=== PATIENT | female | born 1990 | race American Indian/Alaskan Native ===

== ENCOUNTER 2017-05-24 16:03 | Emergency (ER) | payer SELFPAY ==
[2017-05-24] MEDS ORDERED: TORADOL IM ONE (18:43)
--- NOTE | 2017-05-24 18:53 | Emergency Department Report ---
ED Lower Extremity HPI - General Chief Complaint: Extremity Injury, Lower Stated Complaint: BILAT LEG PAIN R MORE THEN L Time Seen by Provider: 05/24/17 18:31 Source: patient Mode of arrival: Ambulatory Limitations: No Limitations - History of Present Illness Initial Comments: Patient is a 26-year-old female here with right leg pain. Patient states that she has a known DVT approximate 4 years ago. She is not currently on any anticoagulants. She states that 4 days ago her legs started to hurt and has subsequently achieved to hurt since that time. She describes it as sharp pain that radiates all the way down her leg. She has no back pain. She is also now beginning to have some left leg pain and tingling as well. No fevers chills nausea vomiting. MD Complaint: other (bilateral leg pain) -: days(s) (4) Severity: moderate Improves With: nothing Worsens With: movement Associated Symptoms: swelling, numbness, tingling. denies: unable to bear weight, ambulatory - Related Data Previous Rx's Medication Instructions Recorded Last Taken Type Cyclobenzaprine [Flexeril] 10 mg PO TID PRN #15 tablet 08/21/16 Unknown Rx Capsaicin 42.5 gm TP BID #1 cream..g. 05/24/17 Unknown Rx Naproxen [Naprosyn TAB] 375 mg PO BID #30 tablet 05/24/17 Unknown Rx Allergies Allergy/AdvReac Type Severity Reaction Status Date / Time hydrocodone AdvReac Hives Verified 05/24/17 16:16 ED Review of Systems ROS: Stated complaint: BILAT LEG PAIN R MORE THEN L Other details as noted in HPI Comment: All other systems reviewed and negative Constitutional: denies: chills, fever Eyes: denies: eye pain, eye discharge, vision change ENT: denies: ear pain, throat pain Respiratory: denies: cough, shortness of breath, wheezing Cardiovascular: denies: chest pain, palpitations Endocrine: no symptoms reported Gastrointestinal: denies: abdominal pain, nausea, diarrhea Genitourinary: denies: urgency, dysuria, discharge Musculoskeletal: denies: back pain, joint swelling, arthralgia Skin: denies: rash, lesions Neurological: denies: headache, weakness, paresthesias Psychiatric: denies: anxiety, depression Hematological/Lymphatic: denies: easy bleeding, easy bruising ED Past Medical Hx - Past Medical History Hx Deep Vein Thrombosis: Yes - Surgical History Past Surgical History?: No - Family History Family history: no significant - Social History Smoking Status: Current Every Day Smoker Substance Use Type: Marijuana - Medications Home Medications: Home Medications Medication Instructions Recorded Confirmed Last Taken Type Cyclobenzaprine [Flexeril] 10 mg PO TID PRN #15 tablet 08/21/16 Unknown Rx Capsaicin 42.5 gm TP BID #1 cream..g. 05/24/17 Unknown Rx Naproxen [Naprosyn TAB] 375 mg PO BID #30 tablet 05/24/17 Unknown Rx ED Physical Exam - General Limitations: No Limitations General appearance: alert, in no apparent distress - Head Head exam: Present: atraumatic, normocephalic - Eye Eye exam: Present: normal appearance. Absent: scleral icterus, conjunctival injection - ENT ENT exam: Present: mucous membranes moist - Neck Neck exam: Present: normal inspection. Absent: lymphadenopathy - Respiratory Respiratory exam: Present: normal lung sounds bilaterally. Absent: respiratory distress - Cardiovascular Cardiovascular Exam: Present: regular rate, normal rhythm. Absent: systolic murmur, diastolic murmur, rubs, gallop - GI/Abdominal GI/Abdominal exam: Present: soft, normal bowel sounds - Extremities Exam Extremities exam: Present: normal inspection, tenderness, other (she has pain with straight leg raise on both sides.). Absent: full ROM, pedal edema - Back Exam Back exam: Present: normal inspection, full ROM. Absent: tenderness, muscle spasm, paraspinal tenderness, vertebral tenderness - Neurological Exam Neurological exam: Present: alert, oriented X3 - Psychiatric Psychiatric exam: Present: normal affect, normal mood - Skin Skin exam: Present: warm, dry, intact, normal color. Absent: rash ED Course Vital Signs 05/24/17 05/24/17 16:16 17:34 Temperature 98.7 F 98.8 F Pulse Rate 69 58 L Respiratory 16 20 Rate Blood Pressure 118/49 Blood Pressure 119/65 [Right] O2 Sat by Pulse 100 100 Oximetry ED Lower Extremity MDM - Lab Data Result diagrams: 05/24/17 19:05 - Medical Decision Making 26 female with known history of DVT here with complaint of right leg pain similar to prior DVT. Ultrasound of bilateral legs is negative. Plan check labs to make sure she does not have any electrolyte abnormalities could cause her pain. Discussed need to have the patient repeat her ultrasound in 3-5 days given her history. Patient is comfortable with this plan. The meantime plan to place the patient on NSAIDs for the next 72-120 hours. Portions of this chart were dictated with dictation software. There may be dictation errors contained within this note. Critical care attestation.: If time is entered above; I have spent that time in minutes in the direct care of this critically ill patient, excluding procedure time. ED Disposition Clinical Impression: Leg pain Disposition: TO HOME OR SELFCARE Is pt being admited?: No Condition: Stable Additional Instructions: Please follow up for repeat ultrasound in 3-5 days Prescriptions: Capsaicin 42.5 gm TP BID #1 cream..g. Naproxen [Naprosyn TAB] 375 mg PO BID #30 tablet Referrals: PRIMARY CARE, [Primary Care Provider] - 3-5 Days
[2017-05-24 19:24] LABS: Basophils % (Auto) 0.5 % (0.0-1.8); Hematocrit 37.3 % (30.3-42.9); Hemoglobin 12.4 gm/dl (10.1-14.3); Mean Corpuscular HGB Conc 33 % (30-34); Mean Corpuscular Hemoglobin 32 pg (28-32); Mean Corpuscular Volume 97 fl (79-97); Platelet Count 305 K/mm3 (140-440); Red Blood Count 3.86 M/mm3 (3.65-5.03); Red Cell Distribution Width 13.4 % (13.2-15.2); White Blood Count 9.1 K/mm3 (4.5-11.0)
[2017-05-24 19:37] LABS: Alanine Aminotransferase 7 units/L (7-56); Albumin 4.2 g/dL (3.9-5); Albumin/Globulin Ratio 1.6 %; Alkaline Phosphatase 65 units/L (35-129); Anion Gap 16 mmol/L; BUN/Creatinine Ratio 15.71; Blood Urea Nitrogen 11 mg/dL (7-17); Calcium 9.3 mg/dL (8.4-10.2); Carbon Dioxide 27 mmol/L (22-30); Glucose 94 mg/dL (65-100); Potassium 4.4 mmol/L (3.6-5.0); Sodium 141 mmol/L (137-145); Total Protein 6.9 g/dL (6.3-8.2)
[2017-05-24 19:45] VITALS: BP 120/60
--- NOTE | 2017-05-25 11:41 | Vascular Lab Report ---
LOWER EXTREMITY VENOUS DUPLEX: REASON FOR EXAM: Pain of the lower extremities. COMMENTS ON THE RIGHT: All veins visualized are freely compressible without evidence of internal echogenicity. Flow is spontaneous and phasic throughout. COMMENTS ON THE LEFT: All veins visualized are freely compressible without evidence of internal echogenicity. Flow is spontaneous and phasic throughout. IMPRESSION: No evidence of acute or chronic deep venous thrombosis in either lower extremity.
== END 2017-05-24 20:17 | disposition home or self-care (01) ==
LOC: ED 16:03
DX: M79.604 Pain in right leg (principal); R20.0 Anesthesia of skin; I82.409 Acute embolism and thrombosis of unspecified deep veins of unspecified lower extremity; F12.10 Cannabis abuse, uncomplicated; F17.200 Nicotine dependence, unspecified, uncomplicated; Z88.5 Allergy status to narcotic agent
CPT/HCPCS: 36415; 80053; 85025; 93970; 96372; 99283; J1885

== ENCOUNTER 2017-06-12 05:53 | Emergency (ER) | payer OTHER ==
--- NOTE | 2017-06-12 07:28 | Emergency Department Report ---
Upper Extremity - [facility] Chief Complaint: Extremity Problem,Nontraumatic Stated Complaint: RT SHOULDER PAIN Time Seen by Provider: 06/12/17 07:15 Upper Extremity: Right Shoulder (right shoulder pain) Occurred When: 1 Day Mechanism: Other (lifting heavy objects at work) Symptoms: Yes Pain with Movement (right shoulder), Yes Limited Range of Movement , No Deformity, No Numbness, No Weakness, No Swelling, No Bruising/Ecchymosis, No Laceration or Abrasion Other History: Pt here reports right shoulder pain after lifting heavy object at work yesterday. She said it got worse this morning. Denies any numbness or tingling. Reports some radiation of pain to her right arm. Denies any weakness. Denies any chest pain or shortness of breath. Denies any swelling or blunt injury. No [id number] medication taken. Better rest worse with movement. past medical history of DVT in her leg. Positive smoker. ED Review of Systems ROS: Stated complaint: RT SHOULDER PAIN Other details as noted in HPI Comment: All other systems reviewed and negative Constitutional: no symptoms reported Respiratory: no symptoms reported Cardiovascular: denies: chest pain, palpitations, edema, syncope Gastrointestinal: denies: abdominal pain, nausea, vomiting, diarrhea Genitourinary: denies: urgency, dysuria, frequency, hematuria, discharge Musculoskeletal: arthralgia. denies: back pain, joint swelling, myalgia Skin: denies: rash Neurological: denies: headache, weakness, numbness, paresthesias, confusion, abnormal gait, vertigo ED Past Medical Hx - Past Medical History Previous Medical History?: Yes Hx Deep Vein Thrombosis: Yes - Surgical History Past Surgical History?: No - Family History Family history: hypertension - Social History Smoking Status: Current Every Day Smoker Substance Use Type: Marijuana - Medications Home Medications: Home Medications Medication Instructions Recorded Confirmed Last Taken Type Cyclobenzaprine [Flexeril] 10 mg PO TID PRN #15 tablet 08/21/16 Unknown Rx Capsaicin 42.5 gm TP BID #1 cream..g. 05/24/17 Unknown Rx Naproxen [Naprosyn TAB] 375 mg PO BID #30 tablet 05/24/17 Unknown Rx Naproxen [Naprosyn] 500 mg PO BID PRN #12 tablet 06/12/17 Unknown Rx traMADol [Ultram] 50 mg PO Q6HR PRN #12 tablet 06/12/17 Unknown Rx Upper Extremity Exam - Exam General: Vital signs noted. No distress. Alert and acting appropriately. This is a 26-year-old female well-nourished well-developed in no acute distress. Head and Torso: No HEENT Abnormality (normal exam), No Neck Tenderness (no C- spine tenderness, no neck muscle tenderness, full range of motion and supple), No Chest/Lungs Abnormality (no chest wall tenderness. Clear to auscultation bilaterally, no rhonchi wheezes or rales. Normal work of breathing), No Abdominal Tenderness (non tender to palpate in all quadrants, positive bowel sounds in all quadrants) Shoulder Exam: Yes Shoulder Tenderness (Glenhumoral joint), Yes Normal Range of Motion in Shoulder ( full range of painful to place right upper extremity overhead.), No Clavicle Tenderness, No Shoulder Deformity (no swelling noted.), No AC Joint Tenderness Arm Exam: No Arm/Humerus Tenderness (no swelling, pulses are 2+ and bounding. No erythema noted.), No Arm Deformity Elbow: Yes Normal Range of Motion in Elbow, No Elbow Tenderness, No Elbow Deformity Forearm: No Forearm Tenderness, No Forearm Deformity, No Pain with Pronation, No Pain with Supination Wrist: Yes Normal ROM in Wrist, No Wrist Tenderness, No Wrist Deformity, No Snuffbox Tenderness, No Pain with Axial Thumb Compression Hand: Yes Normal ROM in Digit(s), No Hand Tenderness, No Hand Deformity, No Digit Tenderness, No Digit(s) Deformity, No Tendon Dysfunction CMS Exam: Yes Normal Distal Pulses, Yes Normal Capillary Refill, Yes Normal Distal Sensation, No Broken Skin ED Course Vital Signs 06/12/17 05:58 Temperature 97.9 F Pulse Rate 79 Respiratory 20 Rate Blood Pressure 124/79 O2 Sat by Pulse 98 Oximetry - Reevaluation(s) Reevaluation #1: 06/12/17 09:26 Patient given [place] 5/325 mg 2 tablets in the emergency room which relieved the right shoulder pain. I discussed with her that she needs to rest, elevate ice affected area. ED Medical Decision Making - Radiology Data Radiology results: report reviewed X-ray of right shoulder reveal no acute fracture or dislocation. - Medical Decision Making ED course:Pt reported that she has right shoulder pain that started yesterday after lifting heavy object at work. X-ray findings for no acute fracture or dislocation. Physical findings for pain with raising her right upper extremity above her head and pain with palpation to her right Glenhumoral joint joint. Patient is also complaining the pain is radiating to her right arm. Right arm exam is normal. Although patient has history of DVT in her leg, she does not have any physical findings that would suggest that she has DVT in her right upper arm. She has no swelling in, no erythema and no tenderness. Smoking cessation encouraged. Patient was given [place] 5/325 2 tablets in the emergency room which relieved her pain. She was also given Zofran 4 mg ODT and doses on 60 mg by mouth because she said that she is allergic to hydrocodone but not to Percocet. This was given empirically to prevent any itching or urticaria. She had no adverse side effect from medication. I discussed with her rice protocol and she needs to follow up with orthopedic doctor on Thursday if she continues to have pain. She was understanding the discharge instruction in paperwork and discharge home in stable condition with her family.Discharged home with prescription for naproxen and Ultram. Critical care attestation.: If time is entered above; I have spent that time in minutes in the direct care of this critically ill patient, excluding procedure time. ED Disposition Clinical Impression: Arthralgia of shoulder region, right, Radiculopathy of arm Disposition: DC-01 TO HOME OR SELFCARE Is pt being admited?: No Does the pt Need Aspirin: No Condition: Stable Instructions: Arthralgia (ED), RICE Therapy (ED) Additional Instructions: follow-up with orthopedic doctor on Thursday as instructed. Rice protocol Take naproxen and Ultram as instructed but please do not drive or operate heavy machinery while taking Ultram as this medication can cause drowsiness Prescriptions: Naproxen [Naprosyn] 500 mg PO BID PRN #12 tablet PRN Reason: Pain traMADol [Ultram] 50 mg PO Q6HR PRN #12 tablet PRN Reason: Pain Referrals: PRIMARY CARE, [Primary Care Provider] - 3-5 Days DEONTE MORGAN MD [Staff Physician] - 06/15/17 Forms: Work/School Release Form(ED), Accompanied Note
--- NOTE | 2017-06-12 07:29 | XRay Report ---
RIGHT SHOULDER, 3 views: History: Right shoulder pain. Routine views demonstrate normal bony and soft tissue structures with normal joint alignment of the shoulder. IMPRESSION: Normal study.
[2017-06-12] MEDS ORDERED: PERCOCET 5/325 PO ONE (08:20)
[2017-06-12] MEDS ORDERED: BENADRYL PO ONE (08:20)
[2017-06-12] MEDS ORDERED: DELTASONE PO ONE (08:21)
[2017-06-12 08:56] VITALS: BP 103/55
== END 2017-06-12 11:02 | disposition home or self-care (01) ==
LOC: ED 05:53
DX: M25.511 Pain in right shoulder (principal); M54.10 Radiculopathy, site unspecified; I82.409 Acute embolism and thrombosis of unspecified deep veins of unspecified lower extremity; F12.10 Cannabis abuse, uncomplicated; F17.200 Nicotine dependence, unspecified, uncomplicated
CPT/HCPCS: 73030; 99283; J7512

== ENCOUNTER 2017-10-11 20:57 | Emergency (ER) | payer SELFPAY ==
[2017-10-11 21:17] VITALS: BP 127/79
[2017-10-11] MEDS ORDERED: MOTRIN PO ONE (21:18)
--- NOTE | 2017-10-11 22:04 | Emergency Department Report ---
HPI - General Chief Complaint: Upper Respiratory Infection Time Seen by Provider: 10/11/17 21:54 - HPI HPI: Patient reports fever, cough body aches that started this morning. Denies any exposure to any known flu. Generalized a can 9 and a 10. No medication taken. Patient reports she is having chest pain and shortness of breath with a history of DVT lower extremity 4 years ago. She states she was on Coumadin but not on any at present. Denies being on control or any long distance travel. Denies any nausea or vomiting. Denies any abdominal pain. Has any urinary burning frequency or urgency. ED Past Medical Hx - Past Medical History Previous Medical History?: Yes Hx Deep Vein Thrombosis: Yes Additional medical history: DVT - Surgical History Past Surgical History?: No - Family History Family history: hypertension - Social History Smoking Status: Never Smoker Substance Use Type: None - Medications Home Medications: Home Medications Medication Instructions Recorded Confirmed Last Taken Type Cyclobenzaprine [Flexeril] 10 mg PO TID PRN #15 tablet 08/21/16 Unknown Rx Capsaicin 42.5 gm TP BID #1 cream..g. 05/24/17 Unknown Rx Naproxen [Naprosyn TAB] 375 mg PO BID #30 tablet 05/24/17 Unknown Rx Naproxen [Naprosyn] 500 mg PO BID PRN #12 tablet 06/12/17 Unknown Rx traMADol [Ultram] 50 mg PO Q6HR PRN #12 tablet 06/12/17 Unknown Rx Cetirizine HCl [ZyrTEC] 10 mg PO QDAY #14 capsule 10/12/17 Unknown Rx Fluticasone [Flonase] 1 spray NS QDAY #1 bottle 10/12/17 Unknown Rx Ibuprofen [Motrin] 600 mg PO Q8H PRN #12 tablet 10/12/17 Unknown Rx Oseltamivir [Tamiflu] 75 mg PO BID 5 Days #10 cap 10/12/17 Unknown Rx guaiFENesin/CODEINE [Robitussin AC] 5 ml PO Q8H PRN #75 ml 10/12/17 Unknown Rx ED Review of Systems ROS: Stated complaint: CHEST PAIN Other details as noted in HPI Comment: All other systems reviewed and negative Constitutional: chills, fever, weakness Eyes: denies: eye pain, eye discharge ENT: congestion. denies: ear pain, throat pain, dental pain Respiratory: cough, shortness of breath, SOB with exertion, SOB at rest. denies : orthopnea, stridor, wheezing Cardiovascular: chest pain. denies: palpitations, edema, syncope Gastrointestinal: denies: abdominal pain, nausea, vomiting, diarrhea Genitourinary: denies: urgency, dysuria, frequency, hematuria Musculoskeletal: myalgia. denies: back pain, joint swelling, arthralgia Skin: denies: rash Neurological: weakness. denies: headache, numbness, paresthesias, confusion, abnormal gait, vertigo Physical Exam - Physical Exam Vital Signs: Vital Signs 10/11/17 21:12 Temperature 101.6 F H Pulse Rate 97 H Blood Pressure 127/79 O2 Sat by Pulse 96 Oximetry Vital Signs 10/11/17 10/11/17 21:12 23:30 Temperature 101.6 F H 99.7 F H Pulse Rate 97 H 64 Respiratory 18 Rate Blood Pressure 127/79 O2 Sat by Pulse 96 99 Oximetry General: This is 27-year-old female, mildly anxious and nontoxic in appearance. Physical Exam: Head: Normocephalic, atraumatic, no abrasion, no bruising and no contusion. Eyes: Biateral pupils equal and reactive to light, bilateral EOM intact.. Bilateral conjunctival and sclera without injection, normal accommodation. Mouth: Moist, no pharyngeal exudate or erythema. No peritonsillar abscesses. Uvula is midline and oral airways patent. Ears: TM congested without erythema. Bilateral EAC without any redness swelling or drainage. No mastoid bone tenderness Nose: [place] nasal turbinates congested with erythema and clear drainage. Maxillary and frontal sinuses non- tender to palpate. Neck: Supple, No Cervical adenopathy, full range of motion and no C-spine tenderness. No swelling or tracheal deviation normal reflexes Cardiovascular: S1, S2. Regular rate and rhythm. No murmur. Capillary refill is less then 3 seconds. Lungs: Clear to auscultate bilaterally. No rhonchi, wheezes or rales. No chest wall tenderness. No chest contusion. No bruising to chest. Dry cough MSK: Strength 5/5 in all extremities. No joint deformity or crepitus. Normal inspection. Full range of motion to all extremities. No laceration, abrasion or ecchymotic area noted. Abdomen: Non-tender to palpate in all quadrants, no guarding or rebound tenderness, positive bowel sounds in all quadrants. No CVA tenderness. No hernia, bruit or mass. No rigidity or distention. Extremities: No clubbing, cyanosis or edema. +2 pulses. No neurovascular compromise Skin: Clean, dry and intact. No rash or lesions. Neurological: GCS at 15, Pt is alert and oriented 3 speech is clear period. 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 Normal gait. Negative Romberg and no pronator drift. Normal Reflexes. No motor or sensory deficit Back: No vertebral tenderness, no paraspinal tenderness. s. Ambulates without any difficulties. Psych: Mild anxiety. ED Course Vital Signs 10/11/17 21:12 Temperature 101.6 F H Pulse Rate 97 H Blood Pressure 127/79 O2 Sat by Pulse 96 Oximetry Vital Signs 10/11/17 10/11/17 21:12 23:30 Temperature 101.6 F H 99.7 F H Pulse Rate 97 H 64 Respiratory 18 Rate Blood Pressure 127/79 O2 Sat by Pulse 96 99 Oximetry - Reevaluation(s) Reevaluation #1: 10/11/17 23:26 Patient given Motrin 800 mg in triage area. Patient's reported chest pain and shortness of breath. CBC, coags and BMP stable. IV fluid normal saline started , morphine 4 mg IV and Zofran 4 mg IV. Influenza A and B-. Reevaluation #2: 10/12/17 00:54 Patient's statements that she feels better. Signs are stable ED Medical Decision Making - Lab Data Result diagrams: 10/11/17 22:14 10/11/17 22:14 Influenza A and B- Lab Results 10/11/17 10/11/17 10/11/17 Range/Units 22:14 22:14 22:14 WBC 10.6 (4.5-11.0) K/mm3 RBC 4.05 (3.65-5.03) M/mm3 Hgb 12.9 (10.1-14.3) gm/dl Hct 39.4 (30.3-42.9) % MCV 97 (79-97) fl MCH 32 (28-32) pg MCHC 33 (30-34) % RDW 13.5 (13.2-15.2) % Plt Count 310 (140-440) K/mm3 Lymph % (Auto) 8.5 L (13.4-35.0) % [place] % (Auto) 6.1 (0.0-7.3) % Eos % (Auto) 1.1 (0.0-4.3) % Baso % (Auto) 0.4 (0.0-1.8) % Lymph # 0.9 L (1.2-5.4) K/mm3 [place] # 0.7 (0.0-0.8) K/mm3 Eos # 0.1 (0.0-0.4) K/mm3 Baso # 0.0 (0.0-0.1) K/mm3 Seg Neutrophils % 83.9 H (40.0-70.0) % Seg Neutrophils # 8.9 H (1.8-7.7) K/mm3 PT 13.6 (12.2-14.9) Sec. INR 0.99 (0.87-1.13) APTT 31.9 (24.2-36.6) Sec. Sodium 145 (137-145) mmol/L Potassium 4.8 (3.6-5.0) mmol/L Chloride 104.2 (98-107) mmol/L Carbon Dioxide 28 (22-30) mmol/L Anion Gap 18 mmol/L BUN 11 (7-17) mg/dL Creatinine 0.8 (0.7-1.2) mg/dL Estimated GFR > 60 ml/min BUN/Creatinine Ratio 14 % Glucose 117 H (65-100) mg/dL Calcium 9.5 (8.4-10.2) mg/dL HCG, Qual (Negative) 10/11/17 Range/Units 22:20 WBC (4.5-11.0) K/mm3 RBC (3.65-5.03) M/mm3 Hgb (10.1-14.3) gm/dl Hct (30.3-42.9) % MCV (79-97) fl MCH (28-32) pg MCHC (30-34) % RDW (13.2-15.2) % Plt Count (140-440) K/mm3 Lymph % (Auto) (13.4-35.0) % [place] % (Auto) (0.0-7.3) % Eos % (Auto) (0.0-4.3) % Baso % (Auto) (0.0-1.8) % Lymph # (1.2-5.4) K/mm3 [place] # (0.0-0.8) K/mm3 Eos # (0.0-0.4) K/mm3 Baso # (0.0-0.1) K/mm3 Seg Neutrophils % (40.0-70.0) % Seg Neutrophils # (1.8-7.7) K/mm3 PT (12.2-14.9) Sec. INR (0.87-1.13) APTT (24.2-36.6) Sec. Sodium (137-145) mmol/L Potassium (3.6-5.0) mmol/L Chloride (98-107) mmol/L Carbon Dioxide (22-30) mmol/L Anion Gap mmol/L BUN (7-17) mg/dL Creatinine (0.7-1.2) mg/dL Estimated GFR ml/min BUN/Creatinine Ratio % Glucose (65-100) mg/dL Calcium (8.4-10.2) mg/dL HCG, Qual Negative (Negative) - EKG Data -: EKG Interpreted by Me (attending physician) EKG shows normal: sinus rhythm (sinus rhythm at 76 bpm) Rate: normal - EKG Data Interpretation: no acute changes, normal EKG - Radiology Data Radiology results: report reviewed CTA chest reveals no pulmonary embolus and no other acute processes. - Medical Decision Making ED course: Patient presented to the emergency room with cough, congestion and body aches that started this morning. Patient has a history of DVT and complained of chest pain with shortness of breath. CBC BMP and coags is stable except mild shift to the left with stable. test negative. Influenza A and B-. CT angiogram revealed no acute cardiopulmonary processes to include no pulmonary embolus. I discussed results of labs and CT scan of the patient's along with diagnosis of acute viral syndrome, fever, upper respiratory with cough and congestion. Patient was given Motrin 800 mg by mouth, IV fluid 1 L saline, Zofran 4 mg IV and morphine 4 mg IV. Patient reports she is feeling all better and her vital signs are stable with low-grade temperature. No further chest pain or shortness of breath. Patient discharged home with prescription for Tamiflu, Motrin, Zyrtec, Flonase and guaifenesin with codeine. She doesn't have a primary care physician so the follow-up at [facility] [place] in 2 days Critical care attestation.: If time is entered above; I have spent that time in minutes in the direct care of this critically ill patient, excluding procedure time. ED Disposition Clinical Impression: Acute viral syndrome, Fever chills, Body aches, URI with cough and congestion, Chest wall pain Disposition: TO HOME OR SELFCARE Is pt being admited?: No Does the pt Need Aspirin: No Condition: Stable Instructions: Chest Pain (ED), Fever in Adults (ED), Viral Syndrome (ED), Musculoskeletal Pain (ED), Acute Cough (ED) Additional Instructions: Please increase her fluid intake to 2-3 L of fluid per day to include orange juice, water and Gatorade Please see medication as prescribed Rest for 72 hours Follow-up with [facility] in 2-3 days for primary care or return to the emergency room if your condition worsens Take Motrin for fever and/or body aches Please do not drive or operate heavy machinery while taking cough medicine as this medication causes drowsiness Prescriptions: Cetirizine HCl [ZyrTEC] 10 mg PO QDAY #14 capsule Fluticasone [Flonase] 1 spray NS QDAY #1 bottle guaiFENesin/CODEINE [Robitussin AC] 5 ml PO Q8H PRN #75 ml PRN Reason: Cough Ibuprofen [Motrin] 600 mg PO Q8H PRN #12 tablet PRN Reason: FEVER/PAIN Oseltamivir [Tamiflu] 75 mg PO BID 5 Days #10 cap Referrals: [facility] [Outside] - 2-3 Days Forms: Accompanied Note, Work/School Release Form(ED)
[2017-10-11] MEDS ORDERED: MORPHINE IV ONE (22:13)
[2017-10-11] MEDS ORDERED: NACL 0.9% 1000 ML 1,000 ML IV ONE (22:13)
[2017-10-11] MEDS ORDERED: ZOFRAN IV ONE (22:13)
[2017-10-11 22:27] LABS: Basophils % (Auto) 0.4 % (0.0-1.8); Eosinophils # (Auto) 0.1 K/mm3 (0.0-0.4); Eosinophils % (Auto) 1.1 % (0.0-4.3); Hematocrit 39.4 % (30.3-42.9); Hemoglobin 12.9 gm/dl (10.1-14.3); Lymphocytes # (Auto) 0.9 K/mm3 (1.2-5.4); Lymphocytes % (Auto) 8.5 % (13.4-35.0); Mean Corpuscular HGB Conc 33 % (30-34); Mean Corpuscular Hemoglobin 32 pg (28-32); Mean Corpuscular Volume 97 fl (79-97); Monocytes # (Auto) 0.7 K/mm3 (0.0-0.8); Monocytes % (Auto) 6.1 % (0.0-7.3); Platelet Count 310 K/mm3 (140-440); Red Blood Count 4.05 M/mm3 (3.65-5.03); Red Cell Distribution Width 13.5 % (13.2-15.2)
[2017-10-11 22:37] LABS: BUN/Creatinine Ratio 14; Blood Urea Nitrogen 11 mg/dL (7-17); Calcium 9.5 mg/dL (8.4-10.2); Hemolysis Index 7
[2017-10-11 22:44] LABS: INR 0.99 (0.87-1.13); Partial Thromboplastin Time 31.9 Sec. (24.2-36.6)
--- NOTE | 2017-10-12 00:42 | Cat Scan Report ---
FINAL REPORT EXAM: CT ANGIO CHEST HISTORY: cp, sob h/o dvt TECHNIQUE: High-resolution helical axial images were obtained of the chest during intravenous administration of iodinated contrast. Images are reconstructed in the sagittal and coronal planes. PRIORS: None. FINDINGS: There is no evidence of pulmonary embolism, the pulmonary arteries opacify normally. The heart and thoracic aorta appear normal. The lungs are clear. Images through the upper abdomen are unremarkable. The bones are unremarkable. IMPRESSION: No evidence of pulmonary embolism or other acute findings in the chest.
== END 2017-10-12 01:20 | disposition home or self-care (01) ==
LOC: ED 20:57
DX: J06.9 Acute upper respiratory infection, unspecified (principal); B34.9 Viral infection, unspecified; Z88.5 Allergy status to narcotic agent; Z86.718 Personal history of other venous thrombosis and embolism; Z79.01 Long term (current) use of anticoagulants
CPT/HCPCS: 36415; 71275; 80048; 84703; 85025; 85610; 85730; 87400; 93005; 93010; 96361; 96374; 96375; 99284; J2270; J2405; J7030; Q9967